=== PATIENT | female | born 1960 | race African-American/Black ===

== ENCOUNTER 2020-09-30 12:07 | Emergency (ER) | payer MEDICARE, MEDICAID, SELFPAY ==
[2020-09-30 12:09] VITALS: BP 231/110; PULSE 73; RESP 14; TEMP 36.6; O2SAT 100; BMI 31.2
--- NOTE | 2020-09-30 12:19 | DI.RAD.S_ITS ---
PROCEDURE: XR CHEST 1V INDICATIONS: chest pain TECHNIQUE: One view of the chest was acquired. COMPARISON: None. FINDINGS: Surgical changes and devices: None. Lungs and pleura: Postsurgical changes in the left lower lobe. Bilateral diffuse reticular infiltrates. No pleural effusions or pneumothorax. Mediastinum: Mediastinal contours appear normal. Heart size is normal. Bones and chest wall: No suspicious bony lesions. Overlying soft tissues appear unremarkable. IMPRESSION: Bilateral diffuse reticular infiltrates suspicious for interstitial lung disease. No focal consolidation or pleural effusion. Dictated by: Buzz Fortune M.D. on 09/30/2020 at 12:54 Approved by: Buzz Fortune M.D. on 09/30/2020 at 12:55
[2020-09-30 12:30] LABS: Add Manual Diff / Slide Review NO; Basophils Absolute Auto 100 /uL (0-100); Eosinophils Absolute Auto 200 /uL (0-450); Hematocrit 36.1 % (36-46); Hemoglobin 11.9 g/dL (12.0-16.0); Lymphocytes Absolute Auto 3300 /uL (1100-4500); Lymphocytes Percent Auto 64.1 % (25-40); Mean Corpuscular HGB Conc 32.9 % (30-36); Mean Corpuscular Hemoglobin 28.6 PG (26-34); Mean Corpuscular Volume 86.9 fL (80-100); Monocytes Absolute Auto 200 /uL (0-900); Monocytes Percent Auto 4.6 % (3-14); Neutrophils Absolute Auto 1400 /uL (1500-7000); Neutrophils Percent Auto 26.3 % (50-75); Platelet Count 250 X10^3/uL (150-400); Red Blood Cell Count 4.15 X10^6/uL (4.0-5.2); Red Cell Distribution Width 13.9 % (11.6-14.8); White Blood Cell Count 5.1 X10^3/uL (4.5-11.0)
[2020-09-30 12:43] LABS: Alanine Aminotransferase 26 IU/L (<35); Albumin 4.6 g/dL (3.5-5.0); Albumin Globulin Ratio 1.3 (1.0-2.8); Alkaline Phosphatase 73 U/L (38-126); Aspartate Aminotransferase 35 IU/L (14-36); Bilirubin Total 0.7 mg/dL (0.2-1.3); Blood Urea Nitrogen 10 mg/dL (7-17); Calcium 9.6 mg/dL (8.4-10.2); Carbon Dioxide 24 mmol/L (22-32); Chloride 108 mmol/L (98-107); Creatine Kinase 170 U/L (30-135); Estimated Glomerular Filt Rate > 60.0 mL/min (>60); Globulin 3.5 g/dL (1.7-4.1); Glucose 101 mg/dL (80-110); HEMOLYSIS 23 (0-50); Lipase 78 U/L (23-300); Potassium 4.3 mmol/L (3.4-5.1); Sodium 138 mmol/L (137-145); Total Protein 8.1 g/dL (6.3-8.2)
[2020-09-30 12:53] LABS: Troponin I < 0.012 ng/mL (0.01-0.034)
[2020-09-30 12:59] LABS: CKMB % Relative Index 0.5 % (1.5-5.0); Creatine Kinase MB 0.85 ng/mL (<2.37)
[2020-09-30 13:52] LABS: COVID19 -Nasal RAPID Negative (Negative)
[2020-09-30 14:00] VITALS: BP 196/95; PULSE 67; RESP 20; O2SAT 97
[2020-09-30 14:01] VITALS: BP 196/95; PULSE 67; RESP 18; O2SAT 96
[2020-09-30 14:30] VITALS: BP 191/91; PULSE 66; RESP 20; O2SAT 98
[2020-09-30 15:00] VITALS: BP 195/87; PULSE 66; RESP 25; O2SAT 100
--- NOTE | 2020-09-30 15:04 | ED_ITS ---
HPI - Chest Pain <Sanket Dasilva PA-C - Last Filed: 09/30/20 15:11> General Chief Complaint: Chest Pain Stated Complaint: Chest Pains, Sore Throat,Cough Time Seen by Provider: 09/30/20 13:07 Source: patient Mode of arrival: Ambulatory Limitations: no limitations History of Present Illness HPI narrative: Ibis presents today with chief complaint sore throat, cough that started 2 days ago and seemed to be improving. She also reports that over the last week she has had a few episodes of vague chest discomfort that has also improved. 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 She reports that she has a chronic history of hypertension and is on multiple medications. She has not taken any of her antihypertensive medications yet today. She denies any significant fever, headache, difficulty breathing, lower extremity swelling or edema, nausea, vomiting, abdominal pain or any other acute concerns or complaints at this time. Related Data Allergies Allergy/AdvReac Type Severity Reaction Status Date / Time No Known Drug Allergies Allergy Verified 09/30/20 12:09 Review of Systems <Sanket Dasilva PA-C - Last Filed: 09/30/20 15:11> Review of Systems Narrative: As per HPI Patient History <RANJEET Scott Last Filed: 09/30/20 15:11> Social History Smoking Status: Current some day smoker Smoking Status: Current some day smoker alcohol intake frequency: 0-2 drinks per day Substance Use Type: does not use Exam <RANJEET Scott Last Filed: 09/30/20 15:11> Narrative Exam Narrative: Const General: cooperative, healthy appearing, comfortable and no acute distress Nutritional Appearance: average body habitus and well nourished Orientation: alert and oriented x3 HENMT Head: normal to inspection and normocephalic Ears: hearing grossly normal bilaterally, external ears normal, TM's normal bilaterally, EAC's normal, mastoids normal and no periauricular adenopathy Nose: external nose normal, nares normal and no nasal discharge Face and sinus: normal facial exam, sinuses nontender and face symmetric Mouth: oral mucosae normal, lip normal, tongue normal and moist mucous membranes Teeth and gingiva: dentition normal and gingiva normal Throat: posterior oropharynx normal, uvula midline, no postnasal drainage and no uvular edema Eyes periorbital findings normal, eyelids normal, conjunctivae normal Neck: normal visual inspection, full ROM, no lymphadenopathy, no meningeal signs and supple Resp normal respiratory effort, able to speak in complete sentences, not labored and no respiratory distress, clear to auscultation bilaterally, no crackles, no rales and no wheezes Cardio regular rate regular rhythm Heart Sounds: no gallops, no murmurs and no rubs Extrem normal to inspection, no pedal edema and no calf tenderness Neuro Alert and Oriented x3, normal gait, moves all extremities. Initial Vital Signs Initial Vital Signs: Vital Signs Temperature 97.9 F 09/30/20 12:09 Pulse Rate 73 09/30/20 12:09 Respiratory Rate 14 09/30/20 12:09 Blood Pressure 231/110 H 09/30/20 12:09 Pulse Oximetry 100 09/30/20 12:09 <Lisa Byers DO - Last Filed: 10/05/20 08:41> Initial Vital Signs Initial Vital Signs: Vital Signs Temperature 97.9 F 09/30/20 12:09 Pulse Rate 73 09/30/20 12:09 Respiratory Rate 14 09/30/20 12:09 Blood Pressure 231/110 H 09/30/20 12:09 Pulse Oximetry 100 09/30/20 12:09 Course <Sanket Dasilva PA-C - Last Filed: 09/30/20 15:11> Orders Ordered: ED Orders 09/30/20 12:17 Complete Blood Count AUTO DIFF Stat Comprehensive Metabolic Panel Stat Lipase Stat Troponin & CK Cardiac Panel Stat 09/30/20 12:19 XR chest 1V Stat EKG-12 Lead Stat 09/30/20 13:23 COVID19 -Nasal swab/Pre-Proc Stat Vital Signs Vital signs: Vital Signs - 8 hr 09/30/20 12:09 09/30/20 14:01 Temperature 97.9 F Pulse Rate 73 67 Respiratory Rate 14 18 Blood Pressure 231/110 H 196/95 H Pulse Oximetry 100 96 <Lisa Byers DO - Last Filed: 10/05/20 08:41> Orders Ordered: ED Orders 09/30/20 12:17 Complete Blood Count AUTO DIFF Stat Comprehensive Metabolic Panel Stat Lipase Stat Troponin & CK Cardiac Panel Stat 09/30/20 12:19 XR chest 1V Stat EKG-12 Lead Stat 09/30/20 13:23 COVID19 -Nasal swab/Pre-Proc Stat Vital Signs Vital signs: Vital Signs - 8 hr 09/30/20 12:09 09/30/20 14:01 Temperature 97.9 F Pulse Rate 73 67 Respiratory Rate 14 18 Blood Pressure 231/110 H 196/95 H Pulse Oximetry 100 96 MDM - Chest Pain <Sanket Dasilva PA-C - Last Filed: 09/30/20 15:11> Lab Data Result diagrams: 09/30/20 12:17 09/30/20 12:17 Labs: Lab Results 09/30/20 09/30/20 09/30/20 Range/Units 12:17 12:17 13:23 WBC 5.1 (4.5-11.0) X10^3/uL RBC 4.15 (4.0-5.2) X10^6/uL Hgb 11.9 L (12.0-16.0) g/dL Hct 36.1 (36-46) % MCV 86.9 (80-100) fL MCH 28.6 (26-34) PG MCHC 32.9 (30-36) % RDW 13.9 (11.6-14.8) % Plt Count 250 (150-400) X10^3/uL Neut % (Auto) 26.3 L (50-75) % Lymph % (Auto) 64.1 H (25-40) % [place] % (Auto) 4.6 (3-14) % Eos % (Auto) 4.0 (2-4) % Baso % (Auto) 1.0 (0-2) % Neut # (Auto) 1400 L (8966-9171) /uL Lymph # (Auto) 3300 (6134-4835) /uL [place] # (Auto) 200 (0-900) /uL Eos # (Auto) 200 (0-450) /uL Baso # (Auto) 100 (0-100) /uL Sodium 138 (137-145) mmol/L Potassium 4.3 (3.4-5.1) mmol/L Chloride 108 H (98-107) mmol/L Carbon Dioxide 24 (22-32) mmol/L BUN 10 (7-17) mg/dL Creatinine 0.77 (0.52-1.04) mg/dL Estimated GFR > 60.0 (>60) mL/min BUN/Creatinine Ratio 13.0 (6-22) Glucose 101 (80-110) mg/dL Calcium 9.6 (8.4-10.2) mg/dL Total Bilirubin 0.7 (0.2-1.3) mg/dL AST 35 (14-36) IU/L ALT 26 (<35) IU/L Alkaline Phosphatase 73 (38-126) U/L Total Creatine Kinase 170 H (30-135) U/L CK-MB (CK-2) 0.85 (<2.37) ng/mL CK-MB (CK-2) Rel Index 0.5 L (1.5-5.0) % Troponin I < 0.012 (0.01-0.034) ng/mL Total Protein 8.1 (6.3-8.2) g/dL Albumin 4.6 (3.5-5.0) g/dL Globulin 3.5 (1.7-4.1) g/dL Albumin/Globulin Ratio 1.3 (1.0-2.8) Lipase 78 (23-300) U/L SARS-CoV-2 (PCR) Negative (Negative) MDM Narrative Medical decision making narrative: Patient has a reassuring physical examination at this time. She is noted to be hypertensive but also has a chronic history of hypertension and has not taken her antihypertensives yet today. She currently denies any significant chest pain. EKG is reassuring as well as her cardiac enzymes. COVID is negative. We will discharge home and have her take her p.o. antihypertensives at this time. Recommend follow-up with PCP. ER return precautions were discussed with the patient. Patient verbalizes understanding and agrees to plan and has no further concerns at this time. Thank you A [id number] system was used with the dictation of this note. Please disregard any spelling or grammatical errors. <Lisa Byers, - Last Filed: 10/05/20 08:41> Lab Data Labs: Lab Results 09/30/20 09/30/20 09/30/20 Range/Units 12:17 12:17 13:23 WBC 5.1 (4.5-11.0) X10^3/uL RBC 4.15 (4.0-5.2) X10^6/uL Hgb 11.9 L (12.0-16.0) g/dL Hct 36.1 (36-46) % MCV 86.9 (80-100) fL MCH 28.6 (26-34) PG MCHC 32.9 (30-36) % RDW 13.9 (11.6-14.8) % Plt Count 250 (150-400) X10^3/uL Neut % (Auto) 26.3 L (50-75) % Lymph % (Auto) 64.1 H (25-40) % [place] % (Auto) 4.6 (3-14) % Eos % (Auto) 4.0 (2-4) % Baso % (Auto) 1.0 (0-2) % Neut # (Auto) 1400 L (1876-4606) /uL Lymph # (Auto) 3300 (3152-4078) /uL [place] # (Auto) 200 (0-900) /uL Eos # (Auto) 200 (0-450) /uL Baso # (Auto) 100 (0-100) /uL Sodium 138 (137-145) mmol/L Potassium 4.3 (3.4-5.1) mmol/L Chloride 108 H (98-107) mmol/L Carbon Dioxide 24 (22-32) mmol/L BUN 10 (7-17) mg/dL Creatinine 0.77 (0.52-1.04) mg/dL Estimated GFR > 60.0 (>60) mL/min BUN/Creatinine Ratio 13.0 (6-22) Glucose 101 (80-110) mg/dL Calcium 9.6 (8.4-10.2) mg/dL Total Bilirubin 0.7 (0.2-1.3) mg/dL AST 35 (14-36) IU/L ALT 26 (<35) IU/L Alkaline Phosphatase 73 (38-126) U/L Total Creatine Kinase 170 H (30-135) U/L CK-MB (CK-2) 0.85 (<2.37) ng/mL CK-MB (CK-2) Rel Index 0.5 L (1.5-5.0) % Troponin I < 0.012 (0.01-0.034) ng/mL Total Protein 8.1 (6.3-8.2) g/dL Albumin 4.6 (3.5-5.0) g/dL Globulin 3.5 (1.7-4.1) g/dL Albumin/Globulin Ratio 1.3 (1.0-2.8) Lipase 78 (23-300) U/L SARS-CoV-2 (PCR) Negative (Negative) Discharge Plan Departure Patient Disposition: Home Clinical Impression: Hypertension Qualifiers: Hypertension type: unspecified Qualified Code(s): I10 - Essential (primary) hypertension Activity Restrictions/Additional Instructions: It was very nice to meet you this afternoon. Please go home and take your oral antihypertensives. Your COVID swab came back negative today. You can take [id number] medications for your upper respiratory symptoms as needed. Please return to the emergency department if you experience worsening chest pain, difficulty breathing, fever or have any additional concerns or complaints. Please call your primary care provider and schedule a follow-up appointment for early next week if your blood pressure continues to be this elevated. Thank you Sanket Dasilva PAC Referrals: Doctor Molina MD [Primary Care Provider] - <Lisa Byers DO - Last Filed: 10/05/20 08:41> Cosign ED Attending Marisolature Attestation: I was immediately available in the department for consultation. Documentation has been reviewed.
== END 2020-09-30 15:30 | disposition home or self-care (01) ==
PROVIDERS: Emergency Medicine; Emergency Provider Physician Assistant
DX: I10 Essential (primary) hypertension (principal); R05 Cough; R07.9 Chest pain, unspecified; Z20.822 Contact with and (suspected) exposure to COVID-19
CPT/HCPCS: 36415; 71045; 80053; 82550; 82553; 83690; 84484; 85025; 87635; 93005; 93010; 99283; 99284; C9803

== ENCOUNTER → 2022-01-25 13:00 | Outpatient (CLI) | payer MEDICARE, MEDICAID, SELFPAY ==
--- NOTE | 2022-01-25 13:02 | DI.MRI.S_ITS ---
PROCEDURE: MR HEAD/BRAIN WO/W CON INDICATIONS: Personal history of malignant neoplasm of brain TECHNIQUE: Noncontrast axial T1 spin echo, axial T2 fast spin echo, sagittal and axial FLAIR, coronal T2 fast spin echo, axial gradient echo, axial diffusion and ADC through the brain. After the administration of contrast, axial and coronal and sagittal T1 spin echo with fat saturation through the brain. COMPARISON: [facility], MR, MR BRAIN WO CON, 01/20/2015, 19:59. FINDINGS: Image quality: Excellent. CSF spaces: Basal cisterns are patent. No extra-axial fluid collections. Ventricles are normal in size and shape. Brain: No midline shift. No acute intracranial bleeds or masses. No abnormal intracranial enhancement. There is cerebral volume loss for age. Resection cavity within the right posterior inferior frontal lobe, as before, with a small amount of overlying low gradient echo signal intensity foci.. There is periventricular white matter chronic small vessel ischemic change. The brainstem appears normal. Diffusion-weighted images demonstrate no acute ischemic insults. No chronic ischemic insults. Normal intravascular flow voids are present. Skull and face: Right fronto temporal craniotomy has been performed. Calvarial marrow is otherwise normal in signal. Orbits appear normal. Sinuses: Sinuses and mastoids appear clear. IMPRESSION: 1. Stable postsurgical sequelae. No evidence of tumor recurrence. 2. No acute process. No recent infarct. 3. Volume loss and small vessel ischemic disease. Dictated by: Preston Bonner M.D. on 01/25/2022 at 13:22 Approved by: Preston Bonner M.D. on 01/25/2022 at 13:24
== END ==
PROVIDERS: Referring Provider Physician Assistant; Visit Provider Physician Assistant
DX: Z85.841 Personal history of malignant neoplasm of brain (principal); R63.4 Abnormal weight loss
CPT/HCPCS: 70553

== ENCOUNTER → 2022-01-29 09:21 | Outpatient (CLI) | payer MEDICARE, MEDICAID, SELFPAY ==
--- NOTE | 2022-01-29 09:25 | DI.CT.S_ITS ---
PROCEDURE: CT CHEST W CON INDICATIONS: Interstitial pulmonary disease, unspecified. History of rheumatoid arthritis. History of smoking. TECHNIQUE: After the administration of intravenous contrast, 5 mm thick sections acquired from the pulmonary apices to the posterior costophrenic angles. 1 mm axial lung, 5 mm thick coronal and sagittal reformats and 7 mm axial MIP were acquired. For radiation dose reduction, the following was used: automated exposure control, adjustment of mA and/or kV according to patient size. COMPARISON: [facility], CR, XR CHEST 2 VIEWS, 04/09/2017, 14:46. CT, CT CHEST HIGH RESOLUTION, 01/19/2015, 8:57. CT, CT CHEST WO CON, 09/30/2014, 13:00. [facility], CR, XR CHEST 1V, 09/30/2020, 12:29. FINDINGS: Image quality: Excellent. Lungs and pleura: There are postsurgical changes in the lingular and inferior left upper lobe. A 0.6 x 1.1 cm subpleural spiculated nodular density is seen in the anterior inferior left upper lobe (series 3 image 157) in the area of surgical sutures, likely secondary to scarring. A 1.1 x 1.5 cm subpleural nodular density is seen in the superior segment of the left lower lobe (series 3, image 139), new since the last CT. There are bilateral reticular nodular infiltrates. Cystic changes are seen in lungs bilaterally. There are multiple discrete nodules bilaterally. No pleural effusions or pneumothorax. Central and peripheral airways are patent and normal in caliber. Mediastinum: Heart size is normal. No pericardial effusion. There are borderline sized mediastinal or hilar lymph nodes, most likely reactive. Thoracic aorta and central pulmonary arteries are normal in size. Esophagus is normal in caliber. No hiatal hernia. Bones and chest wall: No suspicious bony lesions. No vertebral body compression fractures. No axillary or supraclavicular adenopathy by size criteria. Thyroid gland is normal. Abdomen: Visualized upper abdominal solid organs appear normal. Upper abdominal bowel loops are normal in caliber. IMPRESSION: 1. Bilateral reticular nodular infiltrates consistent with interstitial lung disease. The patient has known rheumatoid arthritis. The findings are compatible with rheumatoid lung. 2. Multiple small discrete lung nodules are present, most likely infectious or inflammatory in etiology. 3. A 1.1 x 1.5 cm spiculated subpleural nodule is in the superior segment of the left lower lobe. Recommend a short interval follow-up CT in 3 months. Alternatively, PET-CT may be obtained for further evaluation. 4. 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 Recommend clinical correlation. 5. Borderline enlarged mediastinal and hilar lymph nodes are most likely reactive. Dictated by: Buzz Fortune M.D. on 01/29/2022 at 12:07 Approved by: Buzz Fortune M.D. on 01/29/2022 at 12:37
[2022-01-29 10:57] LABS: Estimated Glomerular Filt Rate > 60 mL/min (>60)
[2022-01-29 17:18] LABS: Hep C Virus Ab w/Reflex Quant NEGATIVE s/c (NEGATIVE)
[2022-03-06 13:57] LABS: HIV-1/2 confirmation Non Reactive
== END ==
PROVIDERS: Radiology Diagnostic Radiology; PCP Physician Assistant; Referring Provider Physician Assistant; Visit Provider Physician Assistant
DX: M05.9 Rheumatoid arthritis with rheumatoid factor, unspecified (principal); J84.9 Interstitial pulmonary disease, unspecified; R91.8 Other nonspecific abnormal finding of lung field; J84.82 Adult pulmonary Langerhans cell histiocytosis; R63.4 Abnormal weight loss
CPT/HCPCS: 36415; 71260; 82565; 86803; 87535; Q9967

== ENCOUNTER → 2022-03-07 14:50 | Outpatient (CLI) | payer MEDICARE, MEDICAID, SELFPAY ==
[2022-03-07 15:35] LABS: Add Manual Diff / Slide Review NO; Basophils Absolute Auto 0 /uL (0-100); Basophils Percent Auto 0.5 % (0-2); Eosinophils Absolute Auto 300 /uL (0-450); Eosinophils Percent Auto 5.5 % (2-4); Hematocrit 35.8 % (36-46); Hemoglobin 11.9 g/dL (12.0-16.0); Lymphocytes Absolute Auto 3700 /uL (1100-4500); Lymphocytes Percent Auto 61.6 % (25-40); Mean Corpuscular HGB Conc 33.3 % (30-36); Mean Corpuscular Hemoglobin 29.4 PG (26-34); Mean Corpuscular Volume 88.2 fL (80-100); Monocytes Absolute Auto 300 /uL (0-900); Monocytes Percent Auto 5.7 % (3-14); Neutrophils Absolute Auto 1600 /uL (1500-7000); Neutrophils Percent Auto 26.7 % (50-75); Platelet Count 278 X10^3/uL (150-400); Red Blood Cell Count 4.06 X10^6/uL (4.0-5.2); Red Cell Distribution Width 13.4 % (11.6-14.8)
[2022-03-07 15:47] LABS: Erythrocyte Sedimentation Rate 38 MM/HR (0-20)
[2022-03-07 15:58] LABS: C-Reactive Protein Quant < 0.5 mg/dL (<1.0)
== END ==
PROVIDERS: PCP Physician Assistant; Referring Provider Physician Assistant Medical; Visit Provider Physician Assistant Medical
DX: D72.819 Decreased white blood cell count, unspecified (principal); M05.79 Rheumatoid arthritis with rheumatoid factor of multiple sites without organ or systems involvement
CPT/HCPCS: 36415; 84155; 84165; 85025; 85651; 86038; 86140; 88184